=== PATIENT | male | born 1940 | race Caucasian/White ===

== ENCOUNTER → 2017-01-31 | Outpatient (CLI) | payer MEDICARE, OTHER ==
[~2017-01-31] MED LIST: ALDACTONE25 MG PO; ASPIRIN LO-DOSE81 MG PO; BENICAR 20 MG20 MG PO; FEOSOL325 MG PO; LIPITOR20 M1 PO; PLAVIX75 MG PO; TOPROL XL 5050 MG PO; TOPROL XL25 MG PO; TYLENOL EXTRA500 MG PO; ULTRAM50 MG PO
--- NOTE | ~2017-01-31 | ENPV ---
Vascular Lower Extremities DVT Study Procedure Demographics Patient Name SYLWIA SINGH SR Date of Study 01/31/2017 Patient Number [id number] Gender Male Date of 1940 Age 76 Visit Number [id number] Height Accession Number [id number] Weight Room Number BSA BMI Referring Nick James MD Interpreting Hernandez Cordova MD Physician Physician Physician Ordering Physician Vicente Putnam MD Gis Mapping Technician Sales Representative Wire Rope [place] Shin [facility], T Conclusions Summary There are several mildly enlarged lymph nodes noted in the inguinal groin. No evidence of deep vein thrombosis or superficial thrombophlebitis in the right lower extremity . Procedure Type of Study: Veins:Lower Extremities DVT Study, Lower Extremity Right. Indications for Study:Pain in Limb and Swelling of Limb. Appropriate Use Criteria:9 Allergies - No known allergies. Patient Status:Routine. Study Location:Vascular Lab. Technical Quality:Adequate visualization. - Preliminary reported to:Alina Karimi. Velocities are measured in cm/s ; Diameters are measured in cm Right Lower Extremities DVT Study Measurements Right 2D and Doppler Measurements + + + + +------+------+ + !Location !Visualized!Compressibility!Thrombosis!Signal!Reflux!Reflux ! ! ! ! ! ! ! !(sec) ! + + + + +------+------+ + !GSV Thigh !Yes !Yes !None !Phasic! ! ! + + + + +------+------+ + !Common !Yes !Yes !None !Phasic! ! ! !Femoral ! ! ! ! ! ! ! + + + + +------+------+ + !Prox !Yes !Yes !None !Phasic! ! ! !Femoral ! ! ! ! ! ! ! + + + + +------+------+ + !Mid Femoral!Yes !Yes !None !Phasic! ! ! + + + + +------+------+ + !Dist !Yes !Yes !None !Phasic! ! ! !Femoral ! ! ! ! ! ! ! + + + + +------+------+ + !Popliteal !Yes !Yes !None !Phasic! ! ! + + + + +------+------+ + !Gastroc !Yes !Yes !None ! ! ! ! + + + + +------+------+ + !PTV !Yes !Yes !None ! ! ! ! + + + + +------+------+ + !Peroneal !Yes !Yes !None ! ! ! ! + + + + +------+------+ + Left Lower Extremities DVT Study Measurements Left 2D and Doppler Measurements + + + + +------+------+ + !Location !Visualized!Compressibility!Thrombosis!Signal!Reflux!Reflux ! ! ! ! ! ! ! !(sec) ! + + + + +------+------+ + !Common !Yes !Yes !None !Phasic! ! ! !Femoral ! ! ! ! ! ! ! + + + + +------+------+ + Signature dtt: QUINTIN QUINN: 01/31/17 1639 Physician Self Edit
== END | disposition disaster alternative care site (69) ==
LOC: GCAR 16:00
DX: M79.89 Other specified soft tissue disorders (principal); M79.604 Pain in right leg; R59.0 Localized enlarged lymph nodes; Z96.651 Presence of right artificial knee joint